=== PATIENT | female | born 1940 | race Caucasian/White ===

== ENCOUNTER → 2017-08-23 | Outpatient (CLI) | payer MEDICARE, OTHER ==
[~2017-08-23] MED LIST: ALTACE5 MG PO; ANECREAM530 GM TOP; ASPIRIN325 PO; BENADRYL25 MG PO; CLEOCIN HCL150 MG PO; COLACE100 MG PO; COZAAR 25 MG TA25 M2 PO; DULCOLAX5 MG PO; ELIQUIS5 MG PO; EVISTA PO; KLOR-CON 1010 MEQ PO; LASIX 20 MG TAB20 MG PO; LISINOPRIL5 MG PO; LOPRESSOR25 PO; MELATONIN3 MG PO; METAMUCIL PAC1 UDPKT PO; METFORMIN HCL500 MG PO; MILK OF MA2400 MG/10 PO; NEURONTIN100 MG PO; NICOTINE TRANSD21 M1 TRANSDERM; OMEPRAZOLE20 M2 PO; OXYCODONE HCL 55 MG PO; PACERONE 200 M200 M1 PO; PERCOCET PO; SPIRONOLACTONE25 M1 PO; XARELTO10 MG PO; [UNRECOGNIZED DRUG - OTHER] PO
[2017-08-23 15:57] LABS: CREATININE 0.8 mg/dL (0.6-1.3)
== END ==
LOC: M.LAB 15:28 → M.MRI 16:30
PROVIDERS: Internal Medicine
DX: G45.2 Multiple and bilateral precerebral artery syndromes (principal); R53.1 Weakness

== ENCOUNTER 2017-12-13 10:42 | Inpatient (IN) | payer MEDICARE, OTHER ==
[~2017-12-13] VITALS: Ht 165.1 cm; Wt 85.6 kg
[~2017-12-13 10:42] MED LIST changes: -ANECREAM530 GM TOP; -COZAAR 25 MG TA25 M2 PO; -DULCOLAX5 MG PO; -ELIQUIS5 MG PO; -KLOR-CON 1010 MEQ PO; -LASIX 20 MG TAB20 MG PO; -LISINOPRIL5 MG PO; -LOPRESSOR25 PO; -MILK OF MA2400 MG/10 PO; -NEURONTIN100 MG PO; -PACERONE 200 M200 M1 PO; -SPIRONOLACTONE25 M1 PO; -[UNRECOGNIZED DRUG - OTHER] PO
[2017-12-13 10:49] VITALS: BP 155/106
[2017-12-13 11:10] LABS: ABSOLUTE BASOPHILS 0.1 thou/uL (0.0-0.2); ABSOLUTE LYMPHOCYTES 0.9 thou/uL (0.8-5.3); ABSOLUTE MONOCYTES 0.6 thou/uL (0.0-1.2); ABSOLUTE NEUTROPHILS 6.3 thou/uL (1.6-8.1); BASOPHILS 1.1 %; EOSINOPHILS 0.4 %; HEMATOCRIT 40.2 % (37.0-47.0); HEMOGLOBIN 13.1 gm/dL (12.0-15.0); LYMPHOCYTES 11.5 %; MCH 29.9 pg (26.0-34.0); MCHC 32.7 g/dL (28.0-37.0); MCV 91.4 fL (80.0-100.0); MONOCYTES 7.5 %; MPV 8.5 fl. (7.2-11.1); NUCLEATED RBCS 0 /100WBC; PLATELET COUNT* 268 thou/uL (150-400); POLYS 79.5 %; RBC 4.39 mil/uL (4.20-5.00); WBC 7.9 thou/uL (4.0-11.0)
[2017-12-13 11:36] LABS: ALBUMIN 2.9 g/dL (3.4-5.0); ALKALINE PHOSPHATASE 54 U/L (46-116); ANION GAP 9 mmol/L (7-16); BUN 25 mg/dL (7-18); CALCIUM 8.9 mg/dL (8.5-10.1); CHLORIDE 105 mmol/L (98-107); CO2 28 mmol/L (21-32); CREATININE 0.8 mg/dL (0.6-1.3); GLUCOSE 193 mg/dL (70-99); NT-PRO BRAIN NAT PEPTIDE 3302 pg/mL (<300); SGOT 32 U/L (15-37); SGPT 73 U/L (30-65); SODIUM 142 mmol/L (136-145); TOTAL BILIRUBIN 0.5 mg/dL (<0.1-1.0); TOTAL PROTEIN 6.6 g/dL (6.4-8.2); TROPONIN-I LEVEL <0.06 ng/mL (<0.06)
--- NOTE | 2017-12-13 11:39 | NUR ---
DILTIAZEM DRIP SLOWED TO 5 ML/HR.
[2017-12-13 11:59] VITALS: BP 111/74
--- NOTE | 2017-12-13 14:08 | EKG ---
[place] [address] ELECTROCARDIOGRAM REPORT Name: JASMINE BAH Room: [address] IN [facility]#: [id number] Admission: 12/13/17 Attend Phys: Jerry Wallace, Discharge: Date of : 44 Report #: [id number] THIS REPORT FOR: //name// [facility] ED Test Date: 2017-12-13 Test Time: 10:48:54 Pat Name: JASMINE BAH Department: Room: Gender: Telecommunications Facility Examiner: Cady SHULTZ : 1940 Requested By: Damian Martinez Order Number: [id number] MD: Jeison Pinto Measurements Intervals [place] Rate: 118 P: [place]: QRS: 100 QRSD: 144 T: -31 QT: 358 QTc: 502 Interpretive Statements Atrial fibrillation Ventricular premature complex rightward axis LBBB Compared to ECG 05/24/2014 10:09:28 Ventricular premature complex(es) now present LBBB now present Sinus rhythm no longer present Electronically Signed On 12-13-2017 14:08:11 CDT by Jeison Pinto [email or web address] <ELECTRONICALLY SIGNED> By: Jeison Pinto MD, [facility] 12/13/17 1408 1048 1048 Jeison Pinto MD, [facility] /EPI
--- NOTE | 2017-12-13 14:55 | NUR ---
ASSUMED CARE OF PATIENT AT 1208 AFTER TRANSFER TO ROOM 220 FROM EMERGENCY DEPARTMENT. PATIENT AWAKE, ALERT, AND ORIENTED APPROPRIATELY. ADMISSION ASSESSMENT AND DOCUMENTATION COMPLETED. VITAL SIGNS STABLE. OXYGEN SATURATION WITHIN NORMAL LIMITS ON 2 LPM PER NASAL CANULA. PATIENT TRANSFERS AND AMBULATES WITH ASSISTANCE FROM STAFF. USES CALL LIGHT APPROPRIATELY. DENIES NEEDS AT THIS TIME. CALL LIGHT WITHIN REACH. FAMILY IN ROOM. NURSING WILL CONTINUE TO MONITOR.
[2017-12-13 16:00] VITALS: BP 124/76
--- NOTE | 2017-12-13 16:16 | 2DMMODE ---
[place] [address] 2 D/M-MODE ECHOCARDIOGRAM Name: JASMINE BAH Room: [address] IN [facility]#: [id number] Admission: 12/13/17 Attend Phys: Jerry Madrigal Discharge: Date of : 44 Date of Service: 12/13/17 1616 Report #: [id number] THIS REPORT FOR: //name// APPROVED REPORT Study performed: 12/13/2017 14:52:58 EXAM: Comprehensive 2D, Doppler, and color-flow Echocardiogram Patient Location: In-Patient Room #: 220 Status: routine BSA: 1.92 HR: 82 bpm BP: 111/74 mmHg Rhythm: NSR Other Information Study Quality: Good Indications Atrial Fibrillation 2D Dimensions LVEF(%): 62.17 (>50%) IVSd: 13.64 (7-11mm) LVOT Diam: 21.89 (18-24mm) LVDd: 48.86 mm PWd: 11.05 (7-11mm) Ascending Ao: 32.18 (22-36mm) LVDs: 32.45 (25-40mm) Aortic Root: 29.28 mm Leggett's LVEF: 62.17 % Volumes Left Atrial Volume (Systole) LA ESV Index: 40.70 mL/m2 Aortic Valve AoV Peak Fritz.: 1.37 m/s AO Peak Gr.: 7.50 mmHg LVOT Max P.21 mmHg AO Mean Gr.: 4.42 mmHg LVOT Mean P.02 mmHg LVOT Max V: 0.74 m/s AO V2 VTI: 21.43 cm LVOT Mean V: 0.46 m/s FERNY (VTI): 1.86 cm2 LVOT V1 VTI: 10.61 cm TDI Medial E' Fritz.: 0.08 m/[place] [address] 2 D/M-MODE ECHOCARDIOGRAM Name: JASMINE BAH Room: [address] IN [facility]#: [id number] Admission: 12/13/17 Attend Phys: Jerry Madrigal Discharge: Date of : 44 Date of Service: 12/13/17 1616 Report #: [id number] Lateral E' Fritz.: 0.11 m/s Pulmonary Valve PV Peak Fritz.: 0.92 m/s PV Peak Gr.: 3.36 mmHg Tricuspid Valve TR Peak Gr.: 32.20 mmHg RVSP: 37.00 mmHg Left Ventricle The left ventricle is normal size. There is global hypokinesis. Mild concentric left ventricular hypertrophy. Left ventricular systolic function is moderately decreased. LVEF is 35-40%. This study is not technically sufficient to allow evaluation of the LV diastolic function due to atrial fibrillation. Right Ventricle The right ventricle is normal size. The right ventricular systolic function is normal. Atria Left atrium is moderately dilated. Right atrium is moderately dilated. Aortic Valve Mild aortic valve sclerosis. No aortic regurgitation is present. There is no aortic valvular stenosis. Mitral Valve The mitral valve is normal in structure. Moderate mitral regurgitation. No evidence of mitral valve stenosis. Tricuspid Valve The tricuspid valve is normal in structure. Moderate tricuspid regurgitation. The RVSP is 35-40 mmHg. Pulmonic Valve The pulmonary valve is normal in structure. Mild pulmonic regurgitation. Great Vessels The aortic root is normal in size. IVC is normal in size and collapses with >50% inspiration Pericardium There is no [place] [address] 2 D/M-MODE ECHOCARDIOGRAM Name: JASMINE BAH Latisha Room: [address]#: [id number] Admission: 12/13/17 Attend Phys: Jerry Madrigal Discharge: Date of : 44 Date of Service: 12/13/17 1616 Report #: [id number] <Conclusion> The left ventricle is normal size. Mild concentric left ventricular hypertrophy. Left ventricular systolic function is moderately decreased. LVEF is 35-40%. There is global hypokinesis. Left atrium is moderately dilated. Right atrium is moderately dilated. Mild aortic valve sclerosis. Moderate mitral regurgitation. Moderate tricuspid regurgitation. The RVSP is 35-40 mmHg. IVC is normal in size and collapses with >50% inspiration <ELECTRONICALLY SIGNED> By: Manuel Lujan MD, FACC 12/13/17 161 15 15 Manuel Lujan MD, FACC /INF
--- NOTE | 2017-12-13 18:11 | NUR ---
PATIENT REMAINS ALERT AND OREINTED APPROPRIATELY. DISCONTINUED CARDIZEM GTT AND STARTED AMIODARONE GTT. PATIENT HAS TRANSFERRED AND AMBULATED TO BATHROOM WITH OXYGEN AND ASSISTANCE FROM STAFF. USES CALL LIGHT APPROPRIATELY. DENIES NEEDS AT THIS TIME. CALL LIGHT WITHIN REACH. NURSING WILL CONTINUE TO MONITOR.
[2017-12-13 20:00] VITALS: BP 116/80
[2017-12-14] VITALS (7 sets, daily range): BP systolic 93–139; BP diastolic 55–90
--- NOTE | 2017-12-14 04:35 | NUR ---
ASSUMED PT CARE AT 1930, PT IS A&OX4, PT IS TRACING AFIB ON THE MONITOR, ON M2L NC SATTING MID TO HIGH 90'S. PT HAS AMIO GTT INFUSING PER EMAR. PT STATES STILL BEING VERY SOA. PT HAD INCREASE IN SOA WELL THE NIGHT WENT ON. PT SOUNDED MORE WET THAN SHE HAD BEEN AT THE START OF SHIFT. NOTIFIED, NEW ORDERS RECEIVED. PT IS UP WITH ONE TO THE BSC. BED IN LOW POSITION, CALL LIGHT IN REACH, BED ALARM ON, YELLOW ARM BAND AND SOCKS IN PLACE. HOURLY ROUNDING COMPLETED FOR PT SAFETY.
[2017-12-14 06:10] LABS: CHOLESTEROL 151 mg/dL (<200); HDL CHOLESTEROL 42 mg/dL (>40); LDL CHOLESTEROL 89 mg/dL (<100); TC:HDL 3.6 Ratio (Not establshd); TRIGLYCERIDE 103 mg/dL (<150); VLDL 21 mg/dL (<40)
[2017-12-14 06:13] LABS: SERUM ASSESSMENT Clear
--- NOTE | 2017-12-14 13:11 | NUR ---
PT ARRIVED TO THE UNIT AT 1125 VIA CART ACCOMPANIED BY ED NURSE, BEDSIDE REPORT RECIEVED. PT ORIENTED TO UNIT AND SREVICES, FOOD AND DRINK OFFERED. VS OBTAINED AND NURSING ASSESSMENT COMPLETED. MEDICATIONS RECONCILED AND ADMISTION ASSESSMENTS COMPLETED. PT DENIES C/O PAIN OF ANY KIND AT THIS TIME, VSS ON 2L VIA NC, TRACING SR ON THE MONITOR. NURSING WILL CONTINUE TO MONITOR FOR COMFORT AND SAFTEY WELL ADMINISTER MEDICATIONS PER MAR.
--- NOTE | 2017-12-14 18:35 | NUR ---
ASSUMED CARE OF PT AT 0730. PT CONTINNUES TO REMAIN A&O X4 CALM AND COOPERATIVE. PT TRACING A FIB/ A FLUT. ON THE MONITOR. VSS ON 2L VIA NC. PT HAS A POOR APPETITE AND HAS ATE LESS THAN 50% OF ALL MEALS TODAY. PT UP TO BEDSIDE COMMODE TO VOID. PT IV BECAME INFILTRATED AND WAS REMOVED. THIS NURSE ATTEMPTED TO PLACE A NEW IV IN HER RIGHT HAND TO NO AVAIL. PT HAD A SHOWER TODAY AND IS CURRENTLY RESTING IN BED WITH DAUGHTER AT BEDSIDE. HOURLY ROUNDING COMPLETED FOR COMFORT AND SAFTEY. NURSINF WILL CONTINUE TO MONITOR.
--- NOTE | 2017-12-14 19:07 | NUR ---
NEW 22G IV INSERTED IN LEFT HAND ON FIRST ATTEMPT.
[2017-12-15 00:28] VITALS: BP 112/66
--- NOTE | 2017-12-15 02:48 | NUR ---
ASSUMED PT CARE AT 1930, PT IS A&OX4, TRACING AFIB/AFLUT ON THE MONITOR, ON 2L CN SATTING MID TO HIGH 90'S. PT STATES THAT SHE FEELS LESS SOA THAN SHE DID YESTERDAY. PT IS EAGER TO DISCHARGE. DENIES ANY PAIN OR NEEDS AT THIS TIME. BED IN LOW POSITION, CALL LIGHT IN REACH, BED ALARM ON, YELLOW ARM BAND AND SOCKS IN PLACE. HOURLY ROUNDING COMPLETED FOR PT SAFETY.
[2017-12-15 03:51] VITALS: BP 111/59
[2017-12-15 05:02] LABS: HEMATOCRIT 38.7 % (37.0-47.0); HEMOGLOBIN 12.6 gm/dL (12.0-15.0); MCH 29.8 pg (26.0-34.0); MCHC 32.5 g/dL (28.0-37.0); MCV 91.6 fL (80.0-100.0); MPV 8.1 fl. (7.2-11.1); RBC 4.23 mil/uL (4.20-5.00); RDW-CV 13.9 % (10.5-14.5); WBC 8.4 thou/uL (4.0-11.0)
[2017-12-15 05:14] LABS: ANION GAP 4 mmol/L (7-16); BUN 18 mg/dL (7-18); CALCIUM 8.4 mg/dL (8.5-10.1); CHLORIDE 105 mmol/L (98-107); CO2 31 mmol/L (21-32); CREATININE 0.8 mg/dL (0.6-1.3); GLUCOSE 166 mg/dL (70-99); MAGNESIUM 1.8 mg/dL (1.8-2.4); POTASSIUM 3.9 mmol/L (3.5-5.1); SODIUM 140 mmol/L (136-145); TROPONIN-I LEVEL <0.06 ng/mL (<0.06)
[2017-12-15 08:00] VITALS: BP 150/66
[2017-12-15 12:05] VITALS: BP 96/67
[2017-12-15 15:43] VITALS: BP 108/80
[2017-12-15] MEDS ORDERED: KLOR-CON 1010 MEQ PO (16:40)
[2017-12-15] MEDS ORDERED: LASIX 20 MG TAB20 MG PO (16:40)
[2017-12-15] MEDS ORDERED: PACERONE 200 M200 M1 PO (16:41)
[2017-12-15] MEDS ORDERED: ELIQUIS5 MG PO (16:41)
[2017-12-15] MEDS ORDERED: LISINOPRIL5 MG PO (16:52)
--- NOTE | 2017-12-15 17:05 | NUR ---
ASSUMED CARE OF PT AT 0730. BEDSIDE REPORT RECIEVED. PT A&O X4 CALM AND COOPERATIVE. VSS ON ROOM AIR, TRACING AFIN/ A DLUT. ON THE MONITOR WITH RATES IN THE 90'S TO LOW 100'S. PT HAD NO C/O PAIN OR DISCOMFORT TODAY AND DID WELL AMBULATING WITH NO SUPPLEMENTAL O2 AND MAINTAINED SATS OF GREATER THAN 92%. PT AND DAUGHTER VERBALIZED UNDERSTANDING OF DC INSTRUCTIONS THAT INCLUDED MEDICATION TEACHING AND FOLLOW UP CARE. ALL PERSONAL ITEMS AND ALL PRESCRIPTIONS TAKEN BY PT AT TIME OF DISCHARGE.
--- NOTE | 2017-12-17 11:15 | CON ---
[address] [address] CONSULTATION Name: NIURKAJASMINE Latisha Room: [address]#: [id number] Admission: 12/13/17 Attend Phys: Jerry Wlalace, Discharge: 12/15/17 Date of : 44 Report #: [id number] THIS REPORT FOR: //name// CC: Jeison Wallace INDICATION: Atrial fibrillation with rapid ventricular response rate. HISTORY OF PRESENT ILLNESS: The patient is a very pleasant 77-year-old white female who reports a history of atrial fibrillation back in the 1980s, treated with Lanoxin. She reports no recurrence of atrial fibrillation until this hospital admission. She reports increasing dyspnea over the last 2 to 3 days. She is not having chest pain, but some chest heaviness. She denies any history of myocardial infarction. EKG on admission to the hospital showed atrial fibrillation with nonspecific intraventricular conduction delay and repolarization abnormalities. CARDIAC RISK FACTORS: Include tobacco use, hypertension, diabetes and family history of coronary artery disease. PAST MEDICAL HISTORY: 1. Borderline hypertension. 2. Type 2 diabetes mellitus. 3. Chronic tobacco use. 4. GERD. 5. Osteoporosis. PAST SURGICAL HISTORY: 1. Right hip replacement. 2. TAHBSO. ALLERGIES: SULFA. HOME MEDICATIONS: Aspirin 325 mg p.o. b.i.d., melatonin 10 mg at bedtime, metformin 500 mg b.i.d., omeprazole 40 mg b.i.d., raloxifene 60 mg daily, ramipril 5 mg daily. REVIEW OF SYSTEMS: As per HPI. PHYSICAL EXAMINATION: VITAL SIGNS: Blood pressure 109/74, pulse is irregular and in the 80s. GENERAL: This is a pleasant lady in no distress. Mood and affect appropriate. HEENT: The patient is wearing glasses. Extraocular muscles intact. Mucous membranes are moist. NECK: Shows no jugular venous distention. There are no carotid bruits. CHEST: Reveals clear lung chacon [place] [address] CONSULTATION Name: JASMINE BAH Room: [address]#: [id number] Admission: 12/13/17 Attend Phys: Jerry Wallace, Discharge: 12/15/17 Date of : 44 Report #: [id number] CARDIOVASCULAR: Reveals an irregularly irregular rhythm without gallop or murmur. ABDOMEN: Reveals normal bowel sounds. The abdomen is soft, nontender. EXTREMITIES: Shows no edema. Peripheral pulses 2+ and palpable. SKIN: Warm and dry. LABORATORY DATA: A 12-lead EKG shows atrial fibrillation with a nonspecific intraventricular conduction delay and repolarization abnormalities. Labs are reviewed. Sodium 142, potassium 4.0, chloride 105, bicarbonate 28, BUN 25, creatinine 0.8, serum glucose 193. LFTs within normal limits. Troponins less than 0.06. NT-proBNP 3302. CBC within normal limits. Chest x-ray shows atelectasis without acute heart failure. The echocardiogram shows global hypokinesis, EF estimated to be approximately 35%. There is left ventricular hypertrophy. There is moderate biatrial enlargement. There is moderate mitral insufficiency. IMPRESSION AND RECOMMENDATIONS: 1. Acute on chronic combined heart failure. Continue current treatment. We will treat underlying dysrhythmia. The patient does not appear significantly volume overloaded at this time. Continue ramipril at current dose. Starting amiodarone for rate and rhythm control of her atrial fibrillation. 2. Atrial fibrillation, new onset, likely ongoing for several days at least. 3. 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 We will start Eliquis and amiodarone. 4. Hypercoagulable state due to atrial fibrillation, start Eliquis. 5. Moderate mitral insufficiency, likely to improve if we were able to improve heart function with treatment of underlying dysrhythmias. 6. Possible hyperlipidemia. We will check fasting lipid profile. 7. Diabetes. Treatment per primary physician. <ELECTRONICALLY SIGNED> By: Manuel Lujan MD, FACC 12/17/17 1115 1556 10Manuel Lujan MD, FACC /nt
== END 2017-12-15 17:05 | disposition home or self-care (01) | DRG 308 ==
LOC: M.ERS 10:42 → M.2W 11:43 → M.TBA-ER 11:43 → M.2W 12:00
PROVIDERS: Emergency Medicine Emergency Medical Services; Internal Medicine Cardiovascular Disease; ADMIT Family Medicine
DX: I48.91 Unspecified atrial fibrillation (principal); I50.43 Acute on chronic combined systolic (congestive) and diastolic (congestive) heart failure; D68.59 Other primary thrombophilia; E11.9 Type 2 diabetes mellitus without complications; I10 Essential (primary) hypertension; K21.9 Gastro-esophageal reflux disease without esophagitis; E66.9 Obesity, unspecified; I42.9 Cardiomyopathy, unspecified; I34.0 Nonrheumatic mitral (valve) insufficiency; E78.5 Hyperlipidemia, unspecified; M81.0 Age-related osteoporosis without current pathological fracture; M19.90 Unspecified osteoarthritis, unspecified site; Z96.641 Presence of right artificial hip joint; Z88.2 Allergy status to sulfonamides; Z90.710 Acquired absence of both cervix and uterus; Z68.31 Body mass index [BMI] 31.0-31.9, adult; Z87.891 Personal history of nicotine dependence; Z79.01 Long term (current) use of anticoagulants; Z79.82 Long term (current) use of aspirin; Z79.899 Other long term (current) drug therapy; Z82.49 Family history of ischemic heart disease and other diseases of the circulatory system

== ENCOUNTER 2018-01-02 14:11 | Emergency (ER) | payer MEDICARE, OTHER ==
[~2018-01-02] VITALS: Ht 165.1 cm; Wt 79.4 kg
[~2018-01-02 14:11] MED LIST changes: +ELIQUIS5 MG PO; +KLOR-CON 1010 MEQ PO; +LASIX 20 MG TAB20 MG PO; +LISINOPRIL5 MG PO; +PACERONE 200 M200 M1 PO
[2018-01-02] MEDS ORDERED: COZAAR 25 MG TA25 M2 PO (14:21)
[2018-01-02] MEDS ORDERED: LOPRESSOR25 PO (14:22)
[2018-01-02 14:39] LABS: ABSOLUTE LYMPHOCYTES 1.5 thou/uL (0.8-5.3); ABSOLUTE MONOCYTES 0.7 thou/uL (0.0-1.2); ABSOLUTE NEUTROPHILS 7.9 thou/uL (1.6-8.1); BASOPHILS 0.5 %; EOSINOPHILS 0.3 %; HEMOGLOBIN 15.9 gm/dL (12.0-15.0); LYMPHOCYTES 15.1 %; MCH 29.8 pg (26.0-34.0); MCHC 33.2 g/dL (28.0-37.0); MCV 89.8 fL (80.0-100.0); MPV 8.2 fl. (7.2-11.1); NUCLEATED RBCS 0 /100WBC; PLATELET COUNT* 402 thou/uL (150-400); POLYS 77.1 %; RBC 5.34 mil/uL (4.20-5.00); WBC 10.2 thou/uL (4.0-11.0)
[2018-01-02 14:49] LABS: INR 1.1; PROTIME 10.3 Seconds (9.20-11.50)
[2018-01-02 14:54] LABS: ANION GAP 8 mmol/L (7-16); BUN 47 mg/dL (7-18); CHLORIDE 98 mmol/L (98-107); CO2 31 mmol/L (21-32); CREATININE 1.2 mg/dL (0.6-1.3); GLUCOSE 193 mg/dL (70-99); POTASSIUM 4.1 mmol/L (3.5-5.1); SODIUM 137 mmol/L (136-145)
[2018-01-02 15:04] LABS: ALBUMIN 4.2 g/dL (3.4-5.0); ALKALINE PHOSPHATASE 56 U/L (46-116); LIPASE 175 U/L (73-393); NT-PRO BRAIN NAT PEPTIDE 1629 pg/mL (<300); SGOT 25 U/L (15-37); SGPT 29 U/L (30-65); TOTAL BILIRUBIN 0.8 mg/dL (<0.1-1.0); TOTAL PROTEIN 8.4 g/dL (6.4-8.2); TROPONIN-I LEVEL <0.06 ng/mL (<0.06)
[2018-01-02 15:33] VITALS: BP 107/64
--- NOTE | 2018-01-03 10:39 | EKG ---
[place] [address] ELECTROCARDIOGRAM REPORT Name: JASMINE BAH Room: [facility]#: [id number] Admission: 01/02/18 Attend Phys: Discharge: 01/02/18 Date of : 44 Report #: [id number] THIS REPORT FOR: //name// [facility] ED Test Date: 2018-01-02 Test Time: 14:30:00 Pat Name: JASMINE BAH Department: Room: Gender: F Precipitate Washer: Cady GUERIN : 1940 Requested By: Damian Martinez Order Number: [id number] MD: Jeison Pinto Measurements Intervals [place] Rate: 101 P: [place]: QRS: 52 QRSD: 162 T: 0 QT: 427 QTc: 554 Interpretive Statements Atrial fibrillation Left bundle branch block Compared to ECG 12/13/2017 10:48:54 Ventricular premature complex(es) no longer present Right-axis deviation no longer present Electronically Signed On 01-03-2018 10:39:37 CDT by Jeison Pinto [email or web address] <ELECTRONICALLY SIGNED> By: Jeison Pinto MD, [facility] 01/03/18 1039 1430 1430 Jeison Pinto MD, [facility] /EPI
== END 2018-01-02 15:34 | disposition home or self-care (01) ==
LOC: M.ERS 14:11
PROVIDERS: Emergency Medicine Emergency Medical Services
DX: I48.91 Unspecified atrial fibrillation (principal); E11.9 Type 2 diabetes mellitus without complications; I10 Essential (primary) hypertension; K21.9 Gastro-esophageal reflux disease without esophagitis; Z90.710 Acquired absence of both cervix and uterus; Z87.891 Personal history of nicotine dependence; Z88.2 Allergy status to sulfonamides

== ENCOUNTER → 2018-01-17 | Outpatient (CLI) | payer MEDICARE, OTHER ==
[2018-01-17] VITALS (7 sets, daily range): BP systolic 97–114; BP diastolic 44–55
[~2018-01-17] MED LIST changes: +ANECREAM530 GM TOP; +COZAAR 25 MG TA25 M2 PO; +DULCOLAX5 MG PO; +LOPRESSOR25 PO; +MILK OF MA2400 MG/10 PO; +NEURONTIN100 MG PO; +SPIRONOLACTONE25 M1 PO; +[UNRECOGNIZED DRUG - OTHER] PO
--- NOTE | 2018-01-17 16:34 | EKG ---
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: : 1940 Requested By: Manuel Lujan Order Number: [id number] Reading MD: Manuel Lujan Measurements Intervals [place] Rate: 60 P: -59 [place]: 214 QRS: 53 QRSD: 164 T: 2 QT: 519 QTc: 519 Interpretive Statements Sinus rhythm with first-degree AV block Atrial premature complex Consider left atrial enlargement Left bundle-branch block Prolonged QT interval compared to previous EKG heart rate has decreased atrial fibrillation resolved left bundle branch block persists Electronically Signed On 01-17-2018 16:33:45 CDT by Manuel Lujan [email or web address] <ELECTRONICALLY SIGNED> By: Manuel Lujan MD, [facility] 01/17/18 1633 1010 1010 Manuel Lujan MD, [facility] /EPI
--- NOTE | 2018-01-24 08:30 | CARD ---
[address] [address] CARDIAC CATH REPORT Name: JASMINE BAH Room: [facility]#: [id number] Admission: 01/17/18 Attend Phys: Manuel Lujan MD Discharge: Date of : 44 Report #: [id number] THIS REPORT FOR: //name// CC: Jeison Lujan DATE OF SERVICE: 01/17/2018 PROCEDURE: DC cardioversion. INDICATION: Persistent atrial fibrillation. DESCRIPTION OF PROCEDURE: After informed consent was obtained, the patient was brought to the cardiac catheterization lab. The patient was given intravenous Versed and fentanyl for conscious sedation. Once the patient was adequately sedated, she was cardioverted from atrial fibrillation to normal sinus rhythm with a single biphasic shock of 300 joules. The patient tolerated the procedure well and without complication. IMPRESSION: 1. Persistent atrial fibrillation. 2. Successful direct current cardioversion to normal sinus rhythm. <ELECTRONICALLY SIGNED> By: Manuel Lujan MD, FACC 01/24/18 0830 1129 1923[facility] Joe Lujan MD, FACC /nt
== END | disposition home or self-care (01) ==
LOC: M.CL 08:48
DX: I48.1 Persistent atrial fibrillation (principal); I11.0 Hypertensive heart disease with heart failure; I50.9 Heart failure, unspecified; Z88.2 Allergy status to sulfonamides; Z79.82 Long term (current) use of aspirin; Z79.899 Other long term (current) drug therapy

== ENCOUNTER 2018-01-24 01:41 | Inpatient (IN) | payer MEDICARE, OTHER ==
[2018-01-24] VITALS (21 sets, daily range): BP systolic 80–161; BP diastolic 41–95
[~2018-01-24] VITALS: Ht 165.1 cm; Wt 77.1 kg
--- NOTE | ~2018-01-24 | EKG ---
[place] [address] ELECTROCARDIOGRAM REPORT Name: JASMINE BAH Room: [address] ADM IN .R.#: [id number] Admission: 01/24/18 Attend Phys: Arley Jenkins MD Discharge: Date of : 44 Report #: [id number] THIS REPORT FOR: //name// [facility] ED Test Date: 2018-01-24 Test Time: 02:13:47 Pat Name: JASMINE BAH Department: Room: [facility] Gender: F Certified Veterinary Technician: : 1940 Requested By: Sylvia Cruz Order Number: [id number] MD: Measurements Intervals [place] Rate: 93 P: -77 [place]: 114 QRS: 88 QRSD: 165 T: 43 QT: 428 QTc: 533 Interpretive Statements Sinus or ectopic atrial rhythm Borderline short [place] interval Probable left ventricular hypertrophy Prolonged QT interval Baseline wander in lead(s) II,III,aVL,aVF,V1,V5 Compared to ECG 01/17/2018 10:10:28 Ectopic atrial rhythm now present Sinus rhythm no longer present Atrial premature complex(es) no longer present Left bundle-branch block no longer present [email or web address] By: 2 2 Epiphany Epiphany, /NOE
[~2018-01-24 01:41] MED LIST changes: -ANECREAM530 GM TOP; -DULCOLAX5 MG PO; -MILK OF MA2400 MG/10 PO; -NEURONTIN100 MG PO; -SPIRONOLACTONE25 M1 PO; -[UNRECOGNIZED DRUG - OTHER] PO
[2018-01-24 01:56] LABS: HEMATOCRIT 43.1 % (37.0-47.0); MCH 30.2 pg (26.0-34.0); MCHC 32.5 g/dL (28.0-37.0); MPV 8.2 fl. (7.2-11.1); NUCLEATED RBCS 0 /100WBC; PLATELET COUNT* 346 thou/uL (150-400); RBC 4.63 mil/uL (4.20-5.00); RDW-CV 14.9 % (10.5-14.5); WBC 21.9 thou/uL (4.0-11.0)
[2018-01-24 02:19] LABS: ANION GAP 11 mmol/L (7-16); BUN 27 mg/dL (7-18); CALCIUM 8.8 mg/dL (8.5-10.1); CHLORIDE 102 mmol/L (98-107); CO2 23 mmol/L (21-32); CREATININE 1.3 mg/dL (0.6-1.3); GLUCOSE 373 mg/dL (70-99); SODIUM 136 mmol/L (136-145)
[2018-01-24 02:29] LABS: ALBUMIN 3.3 g/dL (3.4-5.0); ALKALINE PHOSPHATASE 63 U/L (46-116); NT-PRO BRAIN NAT PEPTIDE 3329 pg/mL (<300); SGOT 24 U/L (15-37); SGPT 39 U/L (30-65); TOTAL BILIRUBIN 0.3 mg/dL (<0.1-1.0); TOTAL PROTEIN 6.9 g/dL (6.4-8.2); TROPONIN-I LEVEL <0.06 ng/mL (<0.06)
[2018-01-24 03:06] LABS: ABSOLUTE BASOPHILS 0.2 thou/uL (0.0-0.2); ABSOLUTE LYMPHOCYTES 1.5 thou/uL (0.8-5.3); ABSOLUTE MONOCYTES 1.1 thou/uL (0.0-1.2); ABSOLUTE NEUTROPHILS 19.1 thou/uL (1.6-8.1); PLATELET ESTIMATE ADEQUATE; TOXIC GRANULATION 1+
[2018-01-24 03:41] LABS: BE -6.8 mmol/L (-2 to +3); HCO3 18.1 mmol/L (22.0-26.0); PCO2 34.6 mmHg (35.0-45.0); PO2 65.5 mmHg (75.0-100.0); pH 7.337 (7.340-7.450)
[2018-01-24 03:47] LABS: URINE BILIRUBIN NEGATIVE (Negative); URINE BLOOD TRACE (Negative); URINE COLOR YELLOW; URINE GLUCOSE-RANDOM 2+ (Negative); URINE KETONES NEGATIVE (Negative); URINE LEUKOCYTES-REFLEX NEGATIVE (Negative); URINE NITRITE-REFLEX NEGATIVE (Negative); URINE PROTEIN 1+ (Negative); URINE SPECIFIC GRAVITY 1.025 (1.005-1.030); URINE UROBILINOGEN 0.2 E.U./dl (0.2-1.0)
[2018-01-24 03:51] LABS: URINE CLARITY CLOUDY
--- NOTE | 2018-01-24 06:11 | NUR ---
SPOKE WITH ABOUT CH LACTIC. RECIEVED ORDERS TO STOP FLUIDS.
--- NOTE | 2018-01-24 07:23 | NUR ---
PATIENT PROGRESSING TOWARDS GOALS. VITALS WNL, BLOOD PRESSURE SOFT. DAWSON IN PLACE. PLACED NEW IV ON WRIST. FLUIDS ARE CURRENTLY OFF PER ORDERS. BS ELEVATED. SPOKE WITH DAUGHTER AND SON WHEN PT WAS ADMITED. THEY BOTH VOICED UNDERSTANDING ON CURRENT CARE. NO FURTHER CONCERNS. PT REMAINS ON BIPAP. WILL CONTINUE TO MONITOR [place].
[2018-01-24 09:15] LABS: CALCIUM 7.9 mg/dL (8.5-10.1); CREATININE 1.3 mg/dL (0.6-1.3); MAGNESIUM 1.7 mg/dL (1.8-2.4)
--- NOTE | 2018-01-24 11:00 | NUR ---
CHART REVIEWED, SPOKE WITH PT.PT LIVES IN HER OWN HOME, ATTACHED TO HER DTR'S HOME--'YOU WALK THRU THE GARAGE TO GET FROM HER HOUSE TO MY HOUSE.' PT HAS BEEN INDEP AT HOME, COOKS, CLEANS, SHOPS, ETC. SHE HAS A CANE, FAMILY SAID IT WAS STILL AT HOME BUT THEY WOULD BRING IT IN. PT HAS NO OTHER DME AT HOME. DISCUSSED ROLE OF CASE MGT, WILL CONTINUE TO FOLLOW.
--- NOTE | 2018-01-24 11:16 | NUR ---
Nutrition: Consult for "20# loss." Pt admitted for respiratory distress. H/o CHF, afib, DM, GERD, CKD II. Labs: WBC 21.9, alb 3.3, BG 331 now down to 110. Bipap prn. Pt in NUCMED test during ICU rounds. 2gm Na diet. Per notes, pt is progressing toward goals. Wt hx per UpTo: usual wt is 186#. Current wt is 189#. No noted wt loss. Unable to speak with pt today. Will follow up next week on wt, po intake, labs, 01/29/18.
--- NOTE | 2018-01-24 13:26 | EKG ---
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 Design Engineer: : 1940 Requested By: Sylvia Cruz Order Number: [id number] MD: Jeison Pinto Measurements Intervals [place] Rate: 93 P: -77 [place]: 114 QRS: 88 QRSD: 165 T: 43 QT: 428 QTc: 533 Interpretive Statements Sinus or ectopic atrial rhythm LBBB Baseline wander in lead(s) II,III,aVL,aVF,V1,V5 Compared to ECG 01/17/2018 10:10:28 Atrial premature complex(es) no longer present Electronically Signed On 01-24-2018 13:26:25 CDT by Jeison Pinto [email or web address] <ELECTRONICALLY SIGNED> By: Jeison Pinto MD, FAC 01/24/18 1326 Jeison Pinto MD, FAC /EPI
--- NOTE | 2018-01-24 14:32 | NUR ---
PATIENT ALERT TPOLERATED VQ SCAN. UP TO CHAIR FOR LUNCH NEEDS MUCH ENCOURAGEMENT. CENTRAL LINE PLACED BY DR SHI. PT TOLERATED WELL BUT SKIN VERY TENDER. PERIPHERAL IVS DCD.
[2018-01-24 20:34] LABS: MAGNESIUM 1.7 mg/dL (1.8-2.4); POTASSIUM 3.6 mmol/L (3.5-5.1)
--- NOTE | 2018-01-24 20:48 | NUR ---
INITAL ASSESMENT COMPLETED AT 1930. PT REPORTS HAVING CRAMPING IN RIGHT FOOT. PRN LIDOCAINE CREAM APPLIED TO FOOT ORDERED. PT AND FAMILY REQUESTING MEDICATION TO RESOLVE CRAMPS. PFFERED PRN FLEXARIL, PT DECLINED. POTASSIUM AND MAGNESIUM LEVEL DRAWN TO EVALUATE POSSIBLE CAUSE. POTASSIUM LEVEL WITHIN NORAL LIMITS. MAGNESIUM LEVEL 1.7.
--- NOTE | 2018-01-24 21:06 | NUR ---
PT GIVEN PO MAGNESIUM PER ELECTROLYTE PROTOCOL FO MAGNESIUM LEVEL OF 1.7.
--- NOTE | 2018-01-24 23:40 | NUR ---
DR CINTRON NOTIFIED REGARDING PT'S REPORT OF FOOT CRAMPING. RECIEVED ORDER FOR GABEPENTIN 100 MG PO BID. FIRST DOSE GIVEN AT 2330.
[2018-01-25] VITALS (11 sets, daily range): BP systolic 97–153; BP diastolic 54–79
[2018-01-25 03:52] LABS: HEMATOCRIT 35.7 % (37.0-47.0); MCH 30.2 pg (26.0-34.0); MCHC 33.5 g/dL (28.0-37.0); MCV 90.2 fL (80.0-100.0); MPV 7.9 fl. (7.2-11.1); RBC 3.96 mil/uL (4.20-5.00); RDW-CV 14.1 % (10.5-14.5); WBC 8.7 thou/uL (4.0-11.0)
[2018-01-25 04:22] LABS: CALCIUM 8.7 mg/dL (8.5-10.1); CREATININE 1.1 mg/dL (0.6-1.3); MAGNESIUM 1.8 mg/dL (1.8-2.4); POTASSIUM 3.6 mmol/L (3.5-5.1)
--- NOTE | 2018-01-25 14:23 | NUR ---
PATIENT TRANSFERED TO 233 REPORT GIVEN TO PAT CABAN.
--- NOTE | 2018-01-25 17:35 | NUR ---
PT CARE ASSUMED AFTER REPORT. AFIB ON MONITOR. DENIES PAIN. DAWSON TO DD. A/O X4. UP WITH STAND BY ASSIST. PROGRESSING TOWARDS GOALS.
[2018-01-26] VITALS: BP 113/55
[2018-01-26 03:46] LABS: HEMATOCRIT 36.4 % (37.0-47.0); HEMOGLOBIN 12.1 gm/dL (12.0-15.0); MCH 29.9 pg (26.0-34.0); MCHC 33.3 g/dL (28.0-37.0); MCV 89.7 fL (80.0-100.0); MPV 8.2 fl. (7.2-11.1); RBC 4.06 mil/uL (4.20-5.00); RDW-CV 14.6 % (10.5-14.5); WBC 7.6 thou/uL (4.0-11.0)
[2018-01-26 04:00] VITALS: BP 121/75
--- NOTE | 2018-01-26 04:33 | NUR ---
PATIENT RESTED IN BED, NO ACUTE CHANGES. PATIENT DID NOT SHOW SIGNS OF DISTRESS. PATIENT HAD HIGH BLOOD SUGAR, DOCTOR NOTIFIED, SEE ORDERS. FALL PRECAUTIONS IN PLACE, BED ALARM ON, CALL LIGHT WITH IN REACH, HOURLY ROUNDING OBSERVED.
[2018-01-26 04:42] LABS: ALBUMIN 2.9 g/dL (3.4-5.0); POTASSIUM 3.7 mmol/L (3.5-5.1); TOTAL BILIRUBIN 0.5 mg/dL (<0.1-1.0); TOTAL PROTEIN 6.3 g/dL (6.4-8.2)
[2018-01-26 04:55] LABS: MAGNESIUM 1.9 mg/dL (1.8-2.4)
[2018-01-26 07:25] VITALS: BP 103/57
--- NOTE | 2018-01-26 10:27 | NUR ---
ASSESSMENT COMPLETED REFER TO COMPUTER CHARTING. PORT TRAFFIC MANAGER TRACKING AFIB. BED IN LOW AND LOCKED POSITION. CALL LIGHT WITHIN REACH. PATIENT REPORTING NO PAIN, NAUSEA OR SHORTNESS OF BREATH. CENTRAL LINE SALINE LOCKED. ON ROOM AIR. PATIENT UP WITH ASSISTANCE TO THE BATHROOM. DAWSON IN PLACE AND DRAINING. WILL CONTINUE TO MONITOR THIS SHIFT.
[2018-01-26 11:59] VITALS: BP 91/63
[2018-01-26 15:50] VITALS: BP 93/63
[2018-01-26 20:00] VITALS: BP 124/57
[2018-01-27] VITALS: BP 110/87
[2018-01-27 04:00] VITALS: BP 123/61
[2018-01-27 05:02] LABS: CALCIUM 9.2 mg/dL (8.5-10.1); CREATININE 1.2 mg/dL (0.6-1.3); MAGNESIUM 1.9 mg/dL (1.8-2.4); POTASSIUM 4.1 mmol/L (3.5-5.1)
--- NOTE | 2018-01-27 05:07 | NUR ---
PATIENT RESTED IN BED, NO ACUTE CHANGES. PATIENT DID NOT SHOW SIGNS OF DISTRESS. FALL PRECAUTIONS IN PLACE, BED ALARM ON, CALL LIGHT WITH IN REACH, HOURLY ROUNDING OBSERVED.
[2018-01-27 08:10] VITALS: BP 103/55
--- NOTE | 2018-01-27 08:10 | NUR ---
RECEIVED REPORT FROM YENNY AND ASSUMED CARE OF PT @ 6536.PT IS A/O,VSS,TRACING AFIB ON THE MONITOR.LUNG SOUNDS ARE CLEAR.LAST BM WAS YESTERDAY.IV LEFT CHEST PATENT AND SALINE LOCKED.DAWSON SECURE AND PATENT.PT IS CALM AND COOPERATIVE WITH NO C/O PAIN AT TIME OF ASSESSMENT.PT IS UP WITH ONE ASSIST TO BATHROOM.PT LEFT RESTING IN BED WITH CALL LIGHT AND FALL PRECAUTIONS IN PLACE.WILL CONTINUE TO MONITOR.
[2018-01-27 12:00] VITALS: BP 117/67
--- NOTE | 2018-01-27 13:13 | NUR ---
CONTINUE TO FOLLOW, MET WITH PT WTIH DR EARLY, DISCUSSED DC PLAN AND REC: FOR SNF. PT SEEMS AGREEABLE. HAS BEEN TO [facility] IN PAST. CALL TO VERONICA/CARSON. SHE SEEMED RELIEVED THAT SNF WAS DISCUSSED AND GLAD THAT HER MOTHER WAS RECEPTIVE. CALLED AND FAXED REFERRAL TO [facility]. C[facility] TO COME OVER TO VISIT WITH PT AND WILL F/U WITH CM. ANTICIPATE DC TOMORROW
[2018-01-27 16:00] VITALS: BP 127/66
--- NOTE | 2018-01-27 17:59 | NUR ---
VSS,CARDIAC MONITORING IN PLACE WITH NO CHANGES.NO C/O PAIN.IV PATENT AND SALINE LOCKED.DAWSON SECURE AND PATENT.PT PLANS TO DISCHARGE TO FACILITY TOMORROW.PT INFORMED OF PLAN OF CARE AND COMMUNICATES UNDERSTANDING.PT AMBULATED IN HALLWAY WITH PT/OT.HOURLY ROUNDING COMPLETED FOR PT SAFETY.CALL LIGHT AND FALL PRECAUTIONS IN PLACE.WILL CONTINUE TO MONITOR FOR DURATION OF SHIFT.
[2018-01-27 20:00] VITALS: BP 114/78; BP 133/51
[2018-01-28] VITALS: BP 110/65
--- NOTE | 2018-01-28 03:55 | NUR ---
PATIENT RESTED IN BED, NO ACUTE CHANGES. PATIENT DID NOT SHOW SIGNS OF DISTRESS. FALL PRECAUTIONS IN PLACE, BED ALARM ON, CALL LIGHT WITH IN REACH, HOURLY ROUNDING OBSERVED. PATIENT DID NOT COMPLAIN OF SOB.
[2018-01-28 04:00] VITALS: BP 118/73
[2018-01-28 04:55] LABS: CALCIUM 8.9 mg/dL (8.5-10.1); CREATININE 1.2 mg/dL (0.6-1.3); POTASSIUM 3.8 mmol/L (3.5-5.1)
[2018-01-28 08:10] VITALS: BP 107/55
--- NOTE | 2018-01-28 08:57 | CON ---
[address] [address] CONSULTATION Name: JASMINE BAH Room: [address] IN .R.#: [id number] Admission: 01/24/18 Attend Phys: Arley Jenkins MD Discharge: Date of : 44 Report #: [id number] THIS REPORT FOR: //name// CC: Jeison Jenkins REASON FOR CONSULTATION: Shortness of breath, possible sleep apnea. HISTORY OF PRESENT ILLNESS: This is a 77-year-old female patient who was diagnosed in November of this year with CHF with ejection fraction 35% and AFib. Since then, she has been on anticoagulation. She presented to the ER and admitted on 01/24/2018 with worsening shortness of breath progressed over the course of few days. She did not have any fever, chills, wheezes or sputum production. She was admitted initially and started on Lasix drip and slowly her breathing improved. She tells me today, her breathing is much better and she is on room air today. She has never been on oxygen at home and although she smoked for 30 years, quit around 4 years ago, never had diagnosis of COPD, never been on inhalers and she denied any history of wheezes. She reported that she wakes up at night more than once. She has some interrupted sleep and she dozes off daytime when she is sitting in the chair, but she had no problem with driving and never fall asleep driving or as a passenger in the car. She had been told in the past she snores, but she never wakes herself up from snoring. She is not sure if she has witnessed apnea. ALLERGIES: SULFA. PAST MEDICAL HISTORY: Hypertension, reflux disease, osteoporosis, arthritis, diabetes, CHF as mentioned above, systolic AFib, mitral regurg. PAST SURGICAL HISTORY: Include hysterectomy, hernia repair, D and C twice, right hip surgery. FAMILY HISTORY: Reviewed with the patient, noncontributory. SOCIAL HISTORY: Used to smoke, quit 4 years ago. She has 30+ history of smoking. Does not drink alcohol excessively. Does not abuse drugs. REVIEW OF SYSTEMS: Negative for fever, no chills, no visual changes, no headache, no loss of appetite, no tinnitus, no cough, no sputum production, no change in urine frequency, no bleeding from any orifice, no bruising. The rest of the review of system is negative. PHYSICAL EXAMINATION: VITAL SIGNS: Her blood pressure 103/55, pulse rate is 75, temperature 36.9. GENERAL: Looks her stated age, awake, alert, speaks in full sentences, [place] [address] CONSULTATION Name: JASMINE BAH Room: [address] IN .R.#: [id number] Admission: 01/24/18 Attend Phys: Arley Jenkins MD Discharge: Date of : 44 Report #: [id number] HEENT: Head: Normocephalic, atraumatic. Pupils reactive to light. Not pale, no jaundice. External ears look healthy and normal. Oral cavity: Moist mucous membranes. Mallampati of 2-3. NECK: Supple. No palpable lymph nodes. No palpable thyroid. Trachea is central. HEART: S1, S2. No murmur. ABDOMEN: Benign, soft, lax, nontender. CHEST: Air movement heard bilaterally, slightly diminished, but no wheezes, no crackles, no added sounds. EXTREMITIES: Lower extremities, no edema noted. No calf tenderness. NEUROLOGIC: Moving all 4 extremities spontaneously. No focal weakness. Cranial nerves grossly normal. Mood and affect appropriate. Good insight and judgment. LABORATORY DATA: She had multiple imaging during this hospitalization. V/Q scan was low probability. Her chest x-ray showed initially signs of vascular congestion that progressed to improvement during this hospitalization. Her BNP was elevated at last hospitalization. Her BUN is 21, creatinine is 1.2, potassium 4.1. Her other BMP during this hospitalization were reviewed. Her INR is 1. AB.33/34/65. IMPRESSION: 1. Acute hypoxic respiratory failure secondary to congestive heart failure, systolic. 2. Atrial fibrillation, on anticoagulation. 3. Lactic acidosis. 4. Mitral regurg. 5. Hypersomnia. 6. Snoring. 7. Possible obstructive sleep apnea. PLAN: 1. The patient's respiratory decompensation is related to her systolic heart failure. She is already responding. This is unlikely to be thromboembolic phenomena given the fact that she is on full anticoagulation prior to hospitalization for her AFib. 2. With history of hypersomnia, snoring and interrupted sleep, I would suspect she has sleep apnea. I would recommend outpatient sleep study and if she has sleep apnea, to be treated, that will improve her chances of staying in sinus rhythm and not go into AFib. This was discussed with the patient in detail. Thank you for the consult. <ELECTRONICALLY SIGNED> By: Gissell Julian MD 01/28/18 [id number] 1952Dthanh Julian MD /nt
--- NOTE | 2018-01-28 09:00 | NUR ---
ASSUMED CARE OF PT AT 0730. PT SITTING UP IN THE RECLINER WAITING FOR BREAKFAST. PT A&0X4, DENIES ANY PAIN OR SHORTNESS OF BREATH AT THIS TIME. PT TRACING AFIB ON THE BRIM MOLDER. RATE CONTROLLED IN THE 80'S. PT ON RA SAT 93%. DENIES ANY SHORTNESS OF BREATH. DAWSON TO DEPENDENT DRAINAGE.PT UP WITH 1 ASSIST AND WALKER TO BATHROOM. PT GOAL FOR TODAY IS TO WORK WITH PHYSICAL AND OCCUPATIONAL THERAPY, DISCONTINUE DAWSON CATHETER AND DISCHARGE TO SNF THIS AFTERNOON. AM ASSESSMENT CHARTED. MEDICATIONS PER AUG. PT REPOSITIONED EVERY 2 HOURS FOR COMFORT. HOURLY ROUNDING OBSERVED. BED IN LOW POSITION. BED/CHAIR ALARM IN PLACE .FALL PRECAUTIONS IN PLACE. CALL LIGHT WITHIN REACH. WILL CONTINUE PLAN OF CARE.
--- NOTE | 2018-01-28 09:56 | NUR ---
Received order from physician to arrange d/c to SNF today. Spoke with business development coordinator at [facility] and they are able to provide w/c van transportation at 1500. Chart copied. Faxed orders to facility.
[2018-01-28] MEDS ORDERED: DULCOLAX5 MG PO (13:27)
[2018-01-28] MEDS ORDERED: ANECREAM530 GM TOP (13:46)
[2018-01-28] MEDS ORDERED: MILK OF MA2400 MG/10 PO ×2 (13:51→13:53)
[2018-01-28 13:55] VITALS: BP 121/60
[2018-01-28] MEDS ORDERED: NEURONTIN100 MG PO (13:55)
[2018-01-28] MEDS ORDERED: SPIRONOLACTONE25 M1 PO (13:56)
[2018-01-28] MEDS ORDERED: [UNRECOGNIZED DRUG - OTHER] PO (15:01)
--- NOTE | 2018-01-28 15:26 | NUR ---
PT AMBULATED IN HALLWAY WITH PHYSICAL THERAPY AND TOOK A SHOWER WITH OCCUPATIONAL THERAPY TODAY. TOLERATED WELL. DR ALICEA HERE TO SEE PT. FOLLOW UP APPT MADE. DISCHARGE ORDERS RECEIVED. DISCHARGE INSTRUCTIONS, CARE NOTES AND FOLLOW UP APPTS GIVEN TO PT. PT COMMUNICATES UNDERSTANDING OF DISCHARGE TEACHING. DAUGHTER UPDATED ON CURRENT CARE PLAN AND DISCHARGE TO [facility]. CENTRAL LINE DISCONTINUED AND PRESSURE DRESSING PLACED. PUBLIC HEALTH SANITARIAN REMOVED. PT DISCHARGED WITH ALL BELONGINGS AND PAPERWORK VIA WHEELCHAIR VAN SERVICE. REPORT CALLED TO GUDELIA AT [facility].
--- NOTE | 2018-01-28 17:19 | CON ---
[address] [address] CONSULTATION Name: JASMINE BAH Room: [address] IN .R.#: [id number] Admission: 01/24/18 Attend Phys: Arley Jenkins MD Discharge: 01/28/18 Date of : 44 Report #: [id number] THIS REPORT FOR: //name// CC: Jeison Jenkins DATE OF SERVICE: 01/24/2018 TYPE OF REPORT: Cardiology consultation. HISTORY OF PRESENT ILLNESS: The patient is a 77-year-old single white female who I was asked to see in the hospital today after she complained of being short of breath. The patient has an extensive past medical history. She actually presented here on December 13 complaining of shortness of breath. She was found to be in atrial fibrillation. She was seen by my partner, Dr. Lujan. She was started on Eliquis and amiodarone. After 4 weeks, the patient was then cardioverted on January 17. She was just discharged. The patient notes that since her discharge, she was doing well; however, starting yesterday, she got in shortness of breath but no fever, cough or edema. Because of shortness of breath, she finally came to the Emergency Room and was admitted. She denies any fever or cough. She denied any chest pain. She denied any palpitations or bleeding. PAST MEDICAL HISTORY: Significant for hysterectomy, hip surgery, hypertension and diabetes. CURRENT MEDICATIONS: Consist of Evista, Lasix, potassium, amiodarone, Eliquis, aspirin, losartan, metoprolol, metformin and omeprazole. ALLERGIES: She has intolerance to SULFA DRUGS. FAMILY HISTORY: Her father had heart disease. SOCIAL HISTORY: She is single, lives by herself in [place], quit smoking 2 years ago. Drinks alcohol occasionally. REVIEW OF SYSTEMS: She notes she had some slurred speech in the past and told she may have had a stroke. She has no history of asthma, liver disease, kidney disease, cancer, psychiatric illness or chronic skin condition. PHYSICAL EXAMINATION: GENERAL: Revealed an elderly frail appearing female who was sitting in a chair. She appeared in no acute distress. VITAL SIGNS: She had a blood pressure of 100/60, pulse 68 and she was afebrile. HEENT: She was anicteric. Conjunctivae pink. [place]ucous [place] [address] CONSULTATION Name: JASMINE BAH Room: [address]#: [id number] Admission: 01/24/18 Attend Phys: Arley Jenkins MD Discharge: 01/28/18 Date of : 44 Report #: [id number] NECK: Veins nondistended. CHEST: Clear to auscultation. CARDIOVASCULAR: Regular rate and rhythm. ABDOMEN: Soft. EXTREMITIES: Had no pitting edema. SKIN: Warm and dry. RADIOLOGICAL DATA: ECG on admission showed a sinus rhythm. There was evidence of a left bundle-branch block. Her workup, she had an echocardiogram done last month that showed left ventricular hypertrophy, ejection fraction of 40%, biatrial enlargement, aortic sclerosis and moderate mitral regurgitation. Her portable chest x-ray showed bilateral pulmonary edema. CT scan of the chest without contrast showed pulmonary edema and mild cardiomegaly. She had a V/Q scan that was low probability for pulmonary embolus. LABORATORY DATA: Sodium 136 and creatinine 1.3. Liver function studies were normal. Troponin 0.12. BNP 3329. Her white blood cell count 21.9 and hemoglobin 14. T4 in November was 1.3. IMPRESSION AND RECOMMENDATIONS: 1. Pulmonary edema, [id number] systolic heart failure. Recommend Lasix. 2. History of atrial fibrillation. The patient recently was cardioverted. She is now on amiodarone. 3. Hypertension. The patient has been on an adrenergic receptor binder and beta mariola. 4. Diabetes. 5. Possible previous stroke. The patient is now anticoagulated. 6. History of tobacco abuse. <ELECTRONICALLY SIGNED> By: Jeison Pinto MD, [facility] 01/28/18 1719 [id number] Pinto MD, FACC /nt
== END 2018-01-28 15:30 | DRG 871 ==
LOC: M.ERS 01:41 → M.ICU 03:19 → M.TBA-ER 03:19 → M.ICU 03:52 → M.2W 01-25 14:49
PROVIDERS: Emergency Medicine; Family Medicine; Internal Medicine; ADMIT Internal Medicine
PROC: 02HV33Z Insertion of Infusion Device into Superior Vena Cava, Percutaneous Approach (ICD-10-PCS; principal; 2018-01-24)
PROC: 5A09357 Assistance with Respiratory Ventilation, Less than 24 Consecutive Hours, Continuous Positive Airway Pressure (ICD-10-PCS; principal; 2018-01-24)
DX: A41.9 Sepsis, unspecified organism (principal); J69.0 Pneumonitis due to inhalation of food and vomit; I21.4 Non-ST elevation (NSTEMI) myocardial infarction; J96.01 Acute respiratory failure with hypoxia; I50.23 Acute on chronic systolic (congestive) heart failure; I13.0 Hypertensive heart and chronic kidney disease with heart failure and stage 1 through stage 4 chronic kidney disease, or unspecified chronic kidney disease; E87.2 Acidosis; E11.22 Type 2 diabetes mellitus with diabetic chronic kidney disease; K21.9 Gastro-esophageal reflux disease without esophagitis; I34.0 Nonrheumatic mitral (valve) insufficiency; T50.1X5A Adverse effect of loop [high-ceiling] diuretics, initial encounter; I95.2 Hypotension due to drugs; M81.0 Age-related osteoporosis without current pathological fracture; G47.10 Hypersomnia, unspecified; M19.90 Unspecified osteoarthritis, unspecified site; F17.210 Nicotine dependence, cigarettes, uncomplicated; G47.33 Obstructive sleep apnea (adult) (pediatric); N18.2 Chronic kidney disease, stage 2 (mild); I48.91 Unspecified atrial fibrillation; Z96.641 Presence of right artificial hip joint; Z79.01 Long term (current) use of anticoagulants; Z79.4 Long term (current) use of insulin; Z79.2 Long term (current) use of antibiotics; Z79.899 Other long term (current) drug therapy; Z88.2 Allergy status to sulfonamides; Z79.82 Long term (current) use of aspirin; Z90.710 Acquired absence of both cervix and uterus; Y92.89 Other specified places as the place of occurrence of the external cause; Z82.49 Family history of ischemic heart disease and other diseases of the circulatory system